=== PATIENT | male | born 1985 | race Two or more races ===

== ENCOUNTER 2024-10-04 00:03 | Inpatient (IN) | payer MEDICAID ==
[~2024-10-04] VITALS: Ht 172.7 cm; Wt 120.7 kg
[2024-10-05 15:10] VITALS: BP 136/74; PULSE 74; RESP 16; TEMP 97.4; O2SAT 100
[2024-10-05 20:15] VITALS: RESP 18
[2024-10-06 08:08] VITALS: BP 113/67; PULSE 70; RESP 18; TEMP 97.2; O2SAT 99
[2024-10-06] MEDS ORDERED: DOCUSATE SODIUM 100 MG CAPSULE PO PRN (09:45)
[2024-10-06] MEDS ORDERED: LOPERAMIDE HCL 2 MG CAPSULE PO PRN (09:45)
[2024-10-06] MEDS ORDERED: ALBUTEROL SULFATE HFA 90 MCG/PUFF 8 GM INHALER IH PRN (09:45)
[2024-10-06] MEDS ORDERED: NICOTINE POLACRILEX 4 MG LOZENGE PO PRN (09:45)
[2024-10-06] MEDS ORDERED: OMEPRAZOLE 20 MG CAPSULE PO PRN (09:45)
[2024-10-06] MEDS ORDERED: BACITRACIN 28 GM OINTMENT TP PRN (09:45)
[2024-10-06] MEDS ORDERED: ONDANSETRON 4 MG TABLET PO PRN (09:45)
[2024-10-06] MEDS ORDERED: MAGNESIUM HYDROXIDE SUSPENSION 30 ML UDCUP PO PRN (09:45)
[2024-10-06] MEDS ORDERED: IBUPROFEN 600 MG TABLET PO PRN (09:45)
[2024-10-06] MEDS ORDERED: BENZOCAINE/MENTHOL [CEPACOL] LOZENGE PO PRN (09:45)
[2024-10-06] MEDS ORDERED: PETROLATUM,WHITE 28 GM JELLY TP PRN (09:45)
[2024-10-06] MEDS ORDERED: ACETAMINOPHEN 325 MG TABLET PO PRN (09:45)
[2024-10-06] MEDS ORDERED: MAG HYDROX/ALUMINUM HYD/SIMETH ES 30 ML SUSPENSION UDCUP PO PRN (09:45)
[2024-10-06] MEDS: ZOLPIDEM TARTRATE 10 MG TABLET PO PRN (20:19)
[2024-10-06 20:35] VITALS: RESP 17
[2024-10-07 08:29] VITALS: BP 109/61; PULSE 72; RESP 17; TEMP 97.6; O2SAT 95
[2024-10-07 20:08] VITALS: BP 110/67; PULSE 87; RESP 18; TEMP 97.6; O2SAT 97
[2024-10-08 08:19] VITALS: BP 113/68; PULSE 68; RESP 16; TEMP 97.6; O2SAT 98
[2024-10-08 09:13] LABS: APPEARANCE,URINE CLEAR (CLEAR); GLUCOSE, URINE (UA) NEGATIVE (NEGATIVE); LEUKOCYTE ESTERASE ,URINE NEGATIVE (NEGATIVE); NITRATE,URINE NEGATIVE (NEGATIVE); OCCULT BLOOD,URINE NEGATIVE (NEGATIVE); PH,URINE DRUG SCREEN 7.5 (5.0-8.0); SPECIFIC GRAVITIY, URINE 1.013 (1.003-1.030)
[2024-10-08 09:24] LABS: ALCOHOL, URINE DRUG SCREEN NEGATIVE (NEGATIVE); AMPHET/METH SCREEN,URINE NEGATIVE (NEGATIVE); BARBITURATE SCREEN, URINE NEGATIVE (NEGATIVE); CANNABINOID SCREEN,URINE NEGATIVE (NEGATIVE); COCAINE SCREEN,URINE NEGATIVE (NEGATIVE); METHADONE SCREEN, URINE NEGATIVE (NEGATIVE)
[2024-10-08 20:43] VITALS: BP 117/64; PULSE 68; RESP 16; TEMP 97.9; O2SAT 95
[2024-10-09 08:27] VITALS: BP 100/60; PULSE 68; RESP 17; TEMP 97.1; O2SAT 95
[2024-10-09 20:22] VITALS: RESP 16
[2024-10-10 08:15] VITALS: BP 119/78; PULSE 89; RESP 18; TEMP 97.4; O2SAT 95
[2024-10-10 22:45] VITALS: BP 103/58; PULSE 87; RESP 18; TEMP 97.5; O2SAT 96
[2024-10-11 08:08] VITALS: BP 109/85; PULSE 90; RESP 18; TEMP 97.9; O2SAT 91
[2024-10-11 20:07] VITALS: RESP 18
[2024-10-12 08:49] VITALS: BP 103/60; PULSE 68; RESP 17; TEMP 97.5; O2SAT 96
[2024-10-12 23:55] VITALS: RESP 18
[2024-10-13 08:16] VITALS: BP 101/60; PULSE 69; RESP 17; TEMP 97.6; O2SAT 96
[2024-10-13 20:09] VITALS: BP 109/66; PULSE 62; RESP 19; TEMP 97.9; O2SAT 99
[2024-10-14 08:17] VITALS: BP 100/61; PULSE 66; RESP 17; TEMP 97.2; O2SAT 97
[2024-10-14 20:21] VITALS: BP 119/75; PULSE 74; RESP 17; TEMP 97.4; O2SAT 94
[2024-10-15 08:11] VITALS: BP 106/72; PULSE 91; RESP 18; TEMP 97.8; O2SAT 97
[2024-10-15 20:12] VITALS: RESP 18
[2024-10-16 08:32] VITALS: BP 108/74; PULSE 87; RESP 17; TEMP 97.8; O2SAT 99
[2024-10-16 20:08] VITALS: BP 114/73; PULSE 62; RESP 18; TEMP 97.8; O2SAT 98
[2024-10-17 08:24] VITALS: BP 130/60; PULSE 70; RESP 18; TEMP 97.7; O2SAT 100
[2024-10-17 20:43] VITALS: BP 124/73; PULSE 71; RESP 17; TEMP 94.6; O2SAT 96
[2024-10-18 08:41] VITALS: BP 100/80; PULSE 67; RESP 17; TEMP 98; O2SAT 99
[2024-10-18 21:05] VITALS: BP 101/60; PULSE 70; RESP 17; TEMP 98; O2SAT 100
[2024-10-19 08:34] VITALS: BP 109/60; PULSE 62; RESP 17; TEMP 97.4; O2SAT 97
[2024-10-19 20:38] VITALS: BP 128/73; PULSE 63; RESP 16; TEMP 95.3; O2SAT 98
[2024-10-20 08:03] VITALS: BP 125/72; PULSE 88; RESP 18; TEMP 96.9; O2SAT 97
[2024-10-20 20:01] VITALS: BP 119/76; PULSE 67; RESP 17; TEMP 97.4; O2SAT 95
[2024-10-21 08:18] VITALS: BP 110/60; PULSE 61; RESP 18; TEMP 97.1; O2SAT 98
[2024-10-21 20:11] VITALS: BP 108/67; PULSE 63; RESP 18; TEMP 97.7; O2SAT 96
[2024-10-22 09:02] VITALS: BP 109/74; PULSE 89; RESP 18; TEMP 97.4; O2SAT 97
[2024-10-22] MEDS ORDERED: RisperiDONE ER SUSPENSION 250 MG/0.7 ML PRE-FILLED SYRINGE SQ ONE (10:45)
[2024-10-22] MEDS: RisperiDONE ER SUSPENSION 200 MG/0.56 ML PRE-FILLED SYRINGE SQ ONE (17:23)
[2024-10-22 20:36] VITALS: BP 106/64; PULSE 64; RESP 16; TEMP 97.4; O2SAT 98
[2024-10-23 09:04] VITALS: BP 111/75; PULSE 76; RESP 17; TEMP 97.9; O2SAT 97
[2024-10-23 21:03] VITALS: RESP 17
[2024-10-24 08:10] VITALS: BP 111/80; PULSE 100; RESP 18; TEMP 97.4; O2SAT 99
[2024-10-24 20:35] VITALS: BP 106/59; PULSE 60; RESP 18; TEMP 96.4; O2SAT 97
[2024-10-25 08:26] VITALS: BP 114/78; PULSE 89; RESP 18; TEMP 97.5; O2SAT 92
[2024-10-25 20:19] VITALS: BP 103/69; PULSE 64; RESP 16; TEMP 97.4; O2SAT 98
[2024-10-26 08:27] VITALS: BP 115/76; PULSE 89; RESP 18; TEMP 97.6; O2SAT 90
[2024-10-26 20:26] VITALS: BP 115/69; PULSE 68; RESP 18; TEMP 97.6; O2SAT 99
[2024-10-27 08:11] VITALS: BP 101/60; PULSE 60; RESP 16; TEMP 97.6; O2SAT 95
[2024-10-27 21:12] VITALS: RESP 17
[2024-10-28 08:41] VITALS: BP 106/67; PULSE 61; RESP 17; TEMP 98; O2SAT 95
[2024-10-28 21:50] VITALS: BP 111/72; PULSE 61; RESP 17; TEMP 97.4; O2SAT 97
[2024-10-29 08:36] VITALS: BP 117/61; PULSE 60; RESP 16; TEMP 97.8; O2SAT 95
[2024-10-29 20:46] VITALS: BP 114/73; PULSE 71; RESP 16; TEMP 97.9; O2SAT 95
[2024-10-30 09:21] VITALS: BP_SYST 106; BP_SYST 108; BP_DIAS 61; PULSE 66; PULSE 73; RESP 17; TEMP 97.7; TEMP 97.9; O2SAT 68; O2SAT 96
[2024-10-30 20:13] VITALS: BP 108/61; PULSE 61; RESP 18; TEMP 97.6; O2SAT 95
[2024-10-31 08:19] VITALS: BP 100/61; PULSE 60; RESP 18; TEMP 97.5; O2SAT 98
[2024-10-31 20:36] VITALS: BP 96/62; PULSE 65; RESP 17; TEMP 98.2; O2SAT 96
[2024-11-01 08:20] VITALS: BP 107/58; PULSE 61; RESP 17; TEMP 97.1; O2SAT 98
[2024-11-01 20:49] VITALS: BP 116/78; PULSE 62; RESP 17; TEMP 96.7; O2SAT 98
[2024-11-02 09:00] VITALS: BP 90/60; PULSE 63; RESP 16; TEMP 97.5; O2SAT 97
[2024-11-02 20:32] VITALS: BP 110/69; PULSE 69; RESP 17; TEMP 97.5; O2SAT 98
[2024-11-03 08:10] VITALS: BP 103/62; PULSE 75; RESP 16; TEMP 97.6; O2SAT 99
[2024-11-03 20:01] VITALS: BP 100/60; PULSE 65; RESP 17; TEMP 96.3; O2SAT 97
[2024-11-04 08:25] VITALS: BP 105/64; PULSE 64; RESP 16; TEMP 97.3; O2SAT 98
[2024-11-04 20:12] VITALS: BP 106/86; PULSE 80; RESP 19; TEMP 97.7; O2SAT 99
[2024-11-05 08:19] VITALS: BP 112/63; PULSE 60; RESP 17; TEMP 97.6; O2SAT 97
[2024-11-05] MEDS ORDERED: RISP250S SQ (11:14)
[2024-12-21] MEDS ORDERED: RisperiDONE ER SUSPENSION 250 MG/0.7 ML PRE-FILLED SYRINGE SQ SCH (09:00)
== END 2024-11-05 17:47 | disposition home or self-care (01) | DRG 750 ==
LOC: B3A 10-05 12:41
PROVIDERS: ADMIT Psychiatry & Neurology Psychiatry; ATTEND Psychiatry & Neurology Psychiatry
PROC: GZHZZZZ Group Psychotherapy (ICD-10-PCS; principal; 2024-10-06)
PROC: GZ52ZZZ Individual Psychotherapy, Cognitive (ICD-10-PCS; 2024-10-09)
DX: F20.0 Paranoid schizophrenia (principal); E66.9 Obesity, unspecified; F10.90 Alcohol use, unspecified, uncomplicated; Y90.9 Presence of alcohol in blood, level not specified; G47.00 Insomnia, unspecified; K59.00 Constipation, unspecified; F41.9 Anxiety disorder, unspecified; Z68.41 Body mass index [BMI] 40.0-44.9, adult; Z72.0 Tobacco use; Z79.899 Other long term (current) drug therapy
CPT/HCPCS: 80307; 81003